=== PATIENT | female | born 1995 | race Caucasian/White ===

== ENCOUNTER → 2018-07-24 | Outpatient (CLI) | payer BC ==
[2018-07-24 13:46] LABS: BASO # 0.1 10^3/uL (0.0-0.2); BASO % 0.7 % (0.0-1.0); EOS # 0.1 10^3/uL (0.0-0.50); EOS % 1.8 % (0.0-3.0); IMMATURE GRANULOCYTE % 0.3 % (0-3.0); LYMPH # 1.6 10^3/uL (1.5-6.5); LYMPH % 23.2 % (24.0-44.0); MEAN CORPUSCULAR HEMOGLOBIN 30.6 pg (27.0-33.0); MEAN CORPUSCULAR HGB CONC 33.3 g/dl (32.0-36.5); MEAN CORPUSCULAR VOLUME 91.7 fl (80.0-96.0); MONO # 0.4 10^3/uL (0.0-0.8); MONO % 6.3 % (0.0-5.0); NEUTROPHILS # 4.6 10^3/uL (1.8-7.7); NEUTROPHILS % 67.7 % (36.0-66.0); PLATELET COUNT, AUTOMATED 251 10^3/uL (150-450); RED CELL DISTRIBUTION WIDTH 13.3 % (11.5-14.5); WHITE BLOOD COUNT 6.8 10^3/uL (4.0-10.0)
[2018-07-24 15:11] LABS: CHLAMYDIA DNA AMPLIFICATION NEGATIVE (NEGATIVE); GC DNA AMPLIFICATION NEGATIVE (NEGATIVE)
[2018-07-25 11:58] LABS: RUBELLA IgG QUALITATIVE IMMUNE (IMMUNE)
[2018-07-25 12:04] LABS: HBsAg Prenatal NEGATIVE (NEGATIVE)
[2018-07-25 12:28] LABS: HIV 1&2 SCREEN CENTAUR NEGATIVE (NEGATIVE)
[2018-07-25 12:28] LABS: HEPATITIS C VIRUS ABY INDEX 0.2 INDEX (<0.8)
== END ==
LOC: M SMT 09:25
DX: Z34.81 Encounter for supervision of other normal pregnancy, first trimester (principal); Z3A.12 12 weeks gestation of pregnancy

== ENCOUNTER → 2018-09-04 | Outpatient (CLI) | payer BC | LOC: M RAD 13:53 | DX: Z36.89 Encounter for other specified antenatal screening (principal); Z3A.18 18 weeks gestation of pregnancy | CPT/HCPCS: 76811 ==

== ENCOUNTER → 2018-09-24 | Outpatient (CLI) | payer BC | LOC: M RAD 06:13 | DX: Z34.02 Encounter for supervision of normal first pregnancy, second trimester (principal); Z36.89 Encounter for other specified antenatal screening; Z3A.21 21 weeks gestation of pregnancy | CPT/HCPCS: 76816 ==

== ENCOUNTER → 2018-11-26 | Outpatient (CLI) | payer OTHER, MEDICAID | LOC: M LAB 07:45 | PROVIDERS: ATTEND Specialist | DX: Z34.02 Encounter for supervision of normal first pregnancy, second trimester (principal) ==

== ENCOUNTER → 2018-12-27 | Outpatient (CLI) | payer OTHER ==
[2018-12-27 09:53] LABS: BASO % 0.4 % (0.0-1.0); EOS # 0.2 10^3/uL (0.0-0.50); EOS % 1.4 % (0.0-3.0); HEMATOCRIT 30.3 % (36.0-47.0); HEMOGLOBIN 10.1 g/dl (12.0-15.5); LYMPH # 1.5 10^3/uL (1.5-6.5); LYMPH % 13.7 % (24.0-44.0); MEAN CORPUSCULAR HEMOGLOBIN 32.6 pg (27.0-33.0); MEAN CORPUSCULAR HGB CONC 33.3 g/dl (32.0-36.5); MEAN CORPUSCULAR VOLUME 97.7 fl (80.0-96.0); MONO # 0.7 10^3/uL (0.0-0.8); MONO % 6.4 % (0.0-5.0); NEUTROPHILS # 8.1 10^3/uL (1.8-7.7); NEUTROPHILS % 75.8 % (36.0-66.0); PLATELET COUNT, AUTOMATED 192 10^3/uL (150-450); WHITE BLOOD COUNT 10.7 10^3/uL (4.0-10.0)
== END ==
LOC: M SMT 08:27
PROVIDERS: ATTEND Advanced Practice Midwife
DX: O99.013 Anemia complicating pregnancy, third trimester (principal)

== ENCOUNTER → 2019-01-10 | Outpatient (REF) | payer OTHER, MEDICAID | LOC: M LAB REF 13:25 | PROVIDERS: ATTEND Advanced Practice Midwife | DX: O99.013 Anemia complicating pregnancy, third trimester (principal); Z3A.00 Weeks of gestation of pregnancy not specified ==

== ENCOUNTER 2019-01-28 06:30 | Inpatient (IN) | payer OTHER ==
[2019-01-28] VITALS (7 sets, daily range): BP systolic 106–121; BP diastolic 72–84
[~2019-01-28] VITALS: Ht 170.2 cm; Wt 83.0 kg
[~2019-01-28 06:30] MED LIST: IRON27TA2 PO; PRENTAB45 PO; STOO100C PO
[2019-01-28] MEDS ORDERED: LR 800 ML IV SCH (07:15)
[2019-01-28] MEDS ORDERED: BICITRA 30ML SOLN UDC PO ONE ×2 (07:30→09:30)
[2019-01-28] MEDS ORDERED: LR 1,000 ML IV SCH ×2 (08:15→11:07)
[2019-01-28 09:24] LABS: HEMATOCRIT 31.7 % (36.0-47.0); HEMOGLOBIN 10.5 g/dl (12.0-15.5); MEAN CORPUSCULAR HEMOGLOBIN 32.2 pg (27.0-33.0); MEAN CORPUSCULAR HGB CONC 33.1 g/dl (32.0-36.5); MEAN CORPUSCULAR VOLUME 97.2 fl (80.0-96.0); PLATELET COUNT, AUTOMATED 209 10^3/uL (150-450); RED BLOOD COUNT 3.26 10^6/uL (4.00-5.40); WHITE BLOOD COUNT 11.5 10^3/uL (4.0-10.0)
[2019-01-28] MEDS ORDERED: OXYTOCIN INJ 10 UNITS/ML VIAL (J2590) As Ordered ONE (09:26)
[2019-01-28] MEDS ORDERED: MORPHINE PRES-FREE INJ 10 MG/10 ML VIAL (J2274) As Ordered ONE (09:26)
[2019-01-28] MEDS ORDERED: BUPIVACAINE/DEXTROSE 0.75% 2 ML AMP As Ordered ONE (09:27)
[2019-01-28] MEDS ORDERED: NALOXONE INJ 0.4 MG/1 ML VIAL (J2310) IV PRN ×2 (10:06)
[2019-01-28] MEDS ORDERED: ONDANSETRON 4MG/2ML VIAL (J2405) IV PRN ×3 (10:06→11:30)
[2019-01-28] MEDS ORDERED: NALBUPHINE HCL 10 MG/ML AMP (J2300) IV PRN ×2 (10:06→11:30)
[2019-01-28] MEDS ORDERED: METOCLOPRAMIDE INJ 10MG/2ML VIAL (J2765) IV PRN (10:06)
[2019-01-28] MEDS ORDERED: diphenhydrAMINE INJ 50MG/ML VIAL (J1200) IV PRN (10:06)
[2019-01-28] MEDS ORDERED: OXYC1TAB23 PO (10:12)
[2019-01-28] MEDS ORDERED: IBUP1TAB7 PO (10:13)
[2019-01-28] MEDS ORDERED: PHENYLephrine HCL 500 MCG/5 ML (100MCG/ML) SYRINGE (J2370) As Ordered ONE (10:16)
[2019-01-28] MEDS ORDERED: ONDANSETRON 4MG/2ML VIAL (J2405) As Ordered ONE ×2 (10:26→13:04)
[2019-01-28] MEDS ORDERED: dexameTHASONE 4 MG/ML 1ML VIAL (J1100) As Ordered ONE (10:26)
[2019-01-28] MEDS ORDERED: OXYTOCIN DRIP 30 UNITS in APPROPRIATE DILUENT 1 EA IV SCH (11:07)
[2019-01-28] MEDS ORDERED: MEASLES,MUMPS,RUBELLA VACCINE INJ (MMR-II) (90707) SC SCH (11:15)
[2019-01-28] MEDS ORDERED: RHOGAM 300 MCG (1500 IU) INJ (J2790) IM SCH (11:15)
[2019-01-28] MEDS ORDERED: DOCUSATE SODIUM 100 MG CAP PO PRN (11:15)
[2019-01-28] MEDS ORDERED: KETOROLAC 30 MG/ML VIAL (J1885) IV PRN (11:30)
[2019-01-28] MEDS ORDERED: fentaNYL 100 MCG/2 ML INJECTION (J3010) IV PRN (11:30)
[2019-01-28] MEDS ORDERED: OXYTOCIN 30 UNITS IN 0.9% NaCl 500ML IV BAG (J2590) As Ordered ONE (11:46)
[2019-01-28] MEDS ORDERED: KETOROLAC 30 MG/ML VIAL (J1885) As Ordered ONE (12:52)
[2019-01-28] MEDS: KETOROLAC 30 MG/ML VIAL (J1885) IV SCH ×2 (12:57→18:45)
[2019-01-29] VITALS (7 sets, daily range): BP systolic 102–127; BP diastolic 54–75
[2019-01-29] MEDS: KETOROLAC 30 MG/ML VIAL (J1885) IV SCH ×2 (00:45→06:37)
[2019-01-29 07:23] LABS: HEMATOCRIT 26.3 % (36.0-47.0); HEMOGLOBIN 8.8 g/dl (12.0-15.5); MEAN CORPUSCULAR HEMOGLOBIN 32.8 pg (27.0-33.0); MEAN CORPUSCULAR HGB CONC 33.5 g/dl (32.0-36.5); MEAN CORPUSCULAR VOLUME 98.1 fl (80.0-96.0); PLATELET COUNT, AUTOMATED 215 10^3/uL (150-450); RED BLOOD COUNT 2.68 10^6/uL (4.00-5.40); WHITE BLOOD COUNT 16.8 10^3/uL (4.0-10.0)
[2019-01-29] MEDS: PRENATAL VITAMINS CHEWABLE TABLET PO SCH (08:30)
--- NOTE | 2019-01-29 10:01 | RO ---
DATE OF OPERATION: 01/28/2019 PREOPERATIVE DIAGNOSIS: 39 weeks' gestation, breech presentation. POSTOPERATIVE DIAGNOSIS: 39 weeks' gestation, breech presentation. PROCEDURE: Primary low transverse section. SURGEON: Alex Momin MD CONTROL AREA OPERATOR: Barbara Medina CNM ANESTHESIA: Spinal. ESTIMATED BLOOD LOSS: 600 mL. URINE OUTPUT: FINDINGS: 3700-gram or 8-pound 3-ounce female , scores 9 and 9, patel breech position. Normal uterus, fallopian tubes, and ovaries. DESCRIPTION OF PROCEDURE: Operative summary: The patient taken the operating room, where spinal anesthesia was induced. She was prepped and draped in sterile fashion in the supine position. Hercules catheter was placed. A Pfannenstiel skin incision was made with the scalpel and carried through to the fascia. The fascia was nicked and extended. The fascia was dissected off the rectus muscle. The rectus muscle divided. The peritoneal cavity was entered. A bladder flap was created. A curvilinear incision was made in the lower uterine segment until bulging membranes were noted. This was extended manually. Membranes ruptured with clear fluid. The was delivered from the patel breech position using standard maneuvers without difficulty. The cord was doubly clamped and cut. The was handed off to the awaiting nurse. The placenta was expressed. The uterus was exteriorized and cleared of clots and debris. The uterine incision was closed with 0 Vicryl in a running locked fashion. A second imbricating layer of 0 Vicryl was placed. The uterus was placed back in the abdominal cavity. The peritoneum was closed with 2-0 Vicryl in a running fashion. The fascia was closed with 0 Vicryl in a running fashion. The deep layer was irrigated and closed with 2-0 chromic. The skin was closed with 4-0 Monocryl subcuticular sutures. Sponge, instrument, and needle counts were correct. Barbara Medina CNM, assisted with all aspects of the procedure from beginning to end. She helped create all layers of the abdomen, as well as hysterotomy. She helped deliver the fetus and then helped close all subsequent layers.
[2019-01-29] MEDS: PERCOCET 5MG/325MG TAB PO PRN ×3 (13:28→23:50)
[2019-01-29] MEDS: IBUPROFEN 800 MG TAB PO SCH ×2 (15:17→22:53)
[2019-01-30 02:31] VITALS: BP 99/56
[2019-01-30 05:52] VITALS: BP 107/62
[2019-01-30] MEDS: IBUPROFEN 800 MG TAB PO SCH ×2 (06:38→15:29)
[2019-01-30] MEDS ORDERED: COLA100C5 PO (08:01)
[2019-01-30] MEDS ORDERED: OXYC1TAB23 PO (08:01)
[2019-01-30] MEDS: PRENATAL VITAMINS CHEWABLE TABLET PO SCH (08:46)
[2019-01-30] MEDS: PERCOCET 5MG/325MG TAB PO PRN (08:46)
--- NOTE | 2019-01-30 08:46 | DSES ---
DATE OF ADMISSION: 01/28/2019 DATE OF DISCHARGE: 01/30/2019 DISCHARGE DIAGNOSIS: Breech presentation. CONDITION ON DISCHARGE: Stable. PROCEDURES PERFORMED: 1. Spinal anesthesia. 2. section. HISTORY AND HOSPITAL COURSE: This patient presented at 39 weeks for a scheduled section secondary to breech presentation. She underwent an uncomplicated section productive of a live born female infant, scores of 9 and 9, weight was 8 pounds 3 ounces, estimated blood loss was 600 mL. She did well postoperatively. By postoperative day #2 she had met all discharge criteria. She was discharged home in stable condition. PHYSICAL EXAMINATION ON THE DATE OF DISCHARGE: Vital signs: Stable. She is afebrile. GENERAL APPEARANCE: Well appearing, no acute distress. ABDOMEN: Soft, appropriately tender, fundus firm below umbilicus. Incision was dressed. Extremities: Negative for calf tenderness. DISCHARGE MEDICATIONS: - Ibuprofen - Percocet DISCHARGE INSTRUCTIONS: 1. She was instructed to follow up in 2 weeks for incision check. 2. Report severe pain, heavy vaginal bleeding, fever, incisional issues. 3. Remain on pelvic rest. edited: 01/31/2019 [id number]
== END 2019-01-30 15:30 | disposition home or self-care (01) | DRG 540 ==
LOC: M LDI 06:30 → M OBS 13:20
PROVIDERS: ADMIT Specialist; ATTEND Specialist
PROC: 10D00Z1 Extraction of Products of Conception, Low, Open Approach (ICD-10-PCS; principal; 2019-01-28 09:30)
DX: O32.1XX0 Maternal care for breech presentation, not applicable or unspecified (principal); O99.824 Streptococcus B carrier state complicating childbirth; Z3A.39 39 weeks gestation of pregnancy; Z37.0 Single live birth

== ENCOUNTER → 2019-02-15 | Outpatient (CLI) | payer OTHER ==
[~2019-02-15] MED LIST changes: +COLA100C5 PO; +IBUP1TAB7 PO; +OXYC1TAB23 PO
[2019-02-15 13:11] LABS: BASO # 0.1 10^3/uL (0.0-0.2); BASO % 1.2 % (0.0-1.0); EOS # 0.1 10^3/uL (0.0-0.50); EOS % 1.8 % (0.0-3.0); HEMATOCRIT 36.7 % (36.0-47.0); HEMOGLOBIN 11.9 g/dl (12.0-15.5); LYMPH # 1.8 10^3/uL (1.5-6.5); LYMPH % 31.3 % (24.0-44.0); MEAN CORPUSCULAR HEMOGLOBIN 31.5 pg (27.0-33.0); MEAN CORPUSCULAR HGB CONC 32.4 g/dl (32.0-36.5); MEAN CORPUSCULAR VOLUME 97.1 fl (80.0-96.0); MONO # 0.4 10^3/uL (0.0-0.8); MONO % 6.3 % (0.0-5.0); NEUTROPHILS # 3.4 10^3/uL (1.8-7.7); PLATELET COUNT, AUTOMATED 361 10^3/uL (150-450); RED BLOOD COUNT 3.78 10^6/uL (4.00-5.40); WHITE BLOOD COUNT 5.7 10^3/uL (4.0-10.0)
[2019-02-15 13:23] LABS: ALBUMIN 3.7 GM/DL (3.2-5.2); ALT/SGPT 23 U/L (12-78); BILIRUBIN,TOTAL 0.5 MG/DL (0.2-1.0); BLOOD UREA NITROGEN 17 MG/DL (7-18); CALCIUM LEVEL 9.9 MG/DL (8.5-10.1); CARBON DIOXIDE LEVEL 30 MEQ/L (21-32); CHLORIDE LEVEL 103 MEQ/L (98-107); CREATININE FOR GFR 0.71 MG/DL (0.55-1.30); GLOMERULAR FILTRATION RATE > 60.0 (>60); SODIUM LEVEL 140 MEQ/L (136-145); TOTAL PROTEIN 7.8 GM/DL (6.4-8.2)
[2019-02-15 13:39] LABS: HEPATITIS B SURFACE ANTIGEN NEGATIVE (NEGATIVE)
[2019-02-15 14:08] LABS: HIV 1&2 SCREEN CENTAUR NEGATIVE (NEGATIVE)
[2019-02-19 07:07] LABS: GLUCOSE, FASTING 90 MG/DL (70-100)
[2019-02-19 08:18] LABS: HEPATITIS A IgG TOTAL Positive (Negative); HEPATITIS BE ANTIBODY Negative (Negative); HEPATITIS BE ANTIGEN Negative (Negative)
[2019-02-21 00:06] LABS: HEPATITIS C QUANTITATION HCV Not Detected IU/mL (.)
== END ==
LOC: M LAB 12:26
PROVIDERS: ATTEND Specialist
DX: Z03.72 Encounter for suspected placental problem ruled out (principal)

== ENCOUNTER → 2019-04-17 | Outpatient (CLI) | payer OTHER | LOC: M SMT 11:25 | PROVIDERS: ATTEND Specialist | DX: Z13.79 Encounter for other screening for genetic and chromosomal anomalies (principal) ==

== ENCOUNTER 2025-03-31 18:30 | Emergency (ER) | payer OTHER ==
[~2025-03-31] VITALS: Ht 170.2 cm; Wt 72.7 kg
[~2025-03-31 18:30] MED LIST changes: +MM S100C PO; -STOO100C PO
[2025-03-31] MEDS ORDERED: NORG0.25 (18:41)
[2025-03-31] MEDS ORDERED: HYDR-643 (18:41)
[2025-03-31] MEDS ORDERED: PERC5TAB12 PO (22:13)
[2025-03-31] MEDS: PERCOCET 5MG/325MG TAB PO ONE (22:20)
[2025-03-31] MEDS: OXYCODONE/APAP 5MG/325MG(HOME DOSE PACK) PO ONE (22:20)
[2025-03-31 22:37] VITALS: BP 132/82; TEMP 98; O2SAT 100
== END 2025-03-31 23:19 | disposition home or self-care (01) ==
LOC: M ED 18:30
DX: S82.142A Displaced bicondylar fracture of left tibia, initial encounter for closed fracture (principal); S00.81XA Abrasion of other part of head, initial encounter; V18.4XXA Pedal cycle driver injured in noncollision transport accident in traffic accident, initial encounter; Y92.410 Unspecified street and highway as the place of occurrence of the external cause; Y93.9 Activity, unspecified; Y99.9 Unspecified external cause status; Z88.0 Allergy status to penicillin